=== PATIENT | male | born 1945 | race Caucasian/White ===

== ENCOUNTER 2018-01-14 19:38 | Emergency (ER) | payer OTHER, MEDICAID ==
[~2018-01-14] VITALS: Ht 160 cm; Wt 118.4 kg
[~2018-01-14 19:38] MED LIST: ALDACTONE25 MG PO; AMIODARONE HCL200 MG PO; ANUSOL-HC25 MG/SUPP RC; CLINDAMYCIN HC300 MG PO; COL100 PO; DIOVAN80 MG PO; FLA500 PO; FUROSEMIDE40 MG PO; LAC PO; LEVAQUIN750 MG PO; LOPRESSOR50 MG PO; METFORMIN500 M1 PO; NORCO1 TA2 PO; PRI20 PO; XARELTO10 M1 PO; ZOCOR20 MG PO
[2018-01-14 20:03] VITALS: Ht 160 cm; Wt 118.4 kg
[2018-01-14 21:16] LABS: microscopic required? YES; urine erythrocyte NEGATIVE (NEGATIVE)
[2018-01-14 21:20] LABS: BASOPHIL % 0.4 % (0-2); PLATELET COUNT 304 x10^3mcL (130-400)
[2018-01-14 21:32] LABS: CALCIUM 8.3 mg/dL (8.5-10.1); CARBON DIOXIDE 28.6 mmol/L (21-32); CHLORIDE SERUM 96 mmol/L (98-107); CREATININE SERUM 1.1 mg/dL (0.7-1.3); GLUCOSE SERUM 116 mg/dL (74-106); POTASSIUM SERUM 3.6 mmol/L (3.5-5.1); SODIUM SERUM 132 mmol/L (136-145)
[2018-01-14 21:37] LABS: ALKALINE PHOSPHATASE 111 U/L (46-116); ALT/SGPT 18 U/L (16-63); AST/SGOT 23 U/L (15-37); BILIRUBIN TOTAL 0.91 mg/dL (0.20-1.00); TOTAL PROTEIN, SERUM 6.7 g/dL (6.4-8.2)
[2018-01-14 21:39] LABS: ALBUMIN 2.5 g/dL (3.4-5.0)
[2018-01-14 22:39] VITALS: BP 127/71
== END 2018-01-14 22:39 | disposition home or self-care (01) ==
LOC: ED 19:38
PROVIDERS: Emergency Medicine
DX: S22.32XA Fracture of one rib, left side, initial encounter for closed fracture (principal); N48.89 Other specified disorders of penis; I10 Essential (primary) hypertension; E11.9 Type 2 diabetes mellitus without complications; E78.00 Pure hypercholesterolemia, unspecified; W22.8XXA Striking against or struck by other objects, initial encounter; Y93.89 Activity, other specified; Y92.89 Other specified places as the place of occurrence of the external cause; Y99.8 Other external cause status
CPT/HCPCS: 36415

== ENCOUNTER 2018-07-29 08:17 | Observation (INO) | payer OTHER, MEDICAID ==
[~2018-07-29] VITALS: Ht 170.2 cm; Wt 117.1 kg
[2018-07-29 08:56] LABS: BASOPHIL % 1.1 % (0-2); PLATELET COUNT 301 x10^3mcL (130-400)
[2018-07-29 08:58] LABS: RED CELL DISTRIBUTION WIDTH 16.5 % (11.5-14.5)
[2018-07-29 09:09] LABS: CALCIUM 8.4 mg/dL (8.5-10.1); CARBON DIOXIDE 26.9 mmol/L (21-32); CHLORIDE SERUM 97 mmol/L (98-107); GLUCOSE SERUM 122 mg/dL (74-106); POTASSIUM SERUM 3.7 mmol/L (3.5-5.1); SODIUM SERUM 133 mmol/L (136-145)
[2018-07-29 09:11] LABS: microscopic required? NO
[2018-07-29 09:12] LABS: ALKALINE PHOSPHATASE 146 U/L (46-116); ALT/SGPT 20 U/L (16-63); AST/SGOT 20 U/L (15-37); BILIRUBIN TOTAL 1.12 mg/dL (0.20-1.00); CHOLESTEROL 159 mg/dL (<200); LIPASE 189 IU/L (73-393); TOTAL PROTEIN, SERUM 7.4 g/dL (6.4-8.2); TRIGLYCERIDES 64 mg/dL (<150)
[2018-07-29 09:18] LABS: HDL CHOLESTEROL 80 mg/dL (40-60)
[2018-07-29 09:20] LABS: T3 TOTAL 1.06 ng/mL
[2018-07-29 09:22] LABS: UA SPECIFIC GRAVITY 1.015 (1.005-1.035); urine erythrocyte NEGATIVE (NEGATIVE)
[2018-07-29 09:27] LABS: FREE T4 1.13 ng/dL (0.76-1.46); FREE THYROXINE INDEX 3.3 ug/dL (1.4-4.5); T4(THYROXINE) 8.4 ug/dL (4.7-13.3)
[2018-07-29] MEDS ORDERED: DIOVAN160 MG PO (10:25)
[2018-07-29] MEDS ORDERED: METFORMIN HYDR500 M1 PO (10:26)
[2018-07-29] MEDS ORDERED: HYDRALAZINE HCL50 MG PO (10:26)
[2018-07-29] MEDS ORDERED: XARELTO10 M1 PO (10:27)
[2018-07-29] MEDS ORDERED: GOOD SENSE OMEP20 MG PO (10:27)
[2018-07-29] MEDS ORDERED: METOPROLOL SUCC50 M2 PO (10:28)
[2018-07-29] MEDS ORDERED: FUROSEMIDE40 MG PO (10:29)
[2018-07-29] MEDS ORDERED: SIMVASTATIN20 M1 PO (10:30)
[2018-07-29 15:15] VITALS: BP 169/92
[2018-07-29 16:55] VITALS: BP 161/72
[2018-07-29 20:59] VITALS: BP 155/75
[2018-07-30 06:04] VITALS: BP 158/77
[2018-07-30 06:38] LABS: CALCIUM 8.7 mg/dL (8.5-10.1); CHLORIDE SERUM 100 mmol/L (98-107); CREATININE SERUM 0.9 mg/dL (0.7-1.3); GLUCOSE SERUM 101 mg/dL (74-106); POTASSIUM SERUM 3.7 mmol/L (3.5-5.1); SODIUM SERUM 135 mmol/L (136-145)
[2018-07-30 06:42] LABS: BASOPHIL % 0.8 % (0-2); PLATELET COUNT 271 x10^3mcL (130-400)
[2018-07-30 06:58] LABS: RED CELL DISTRIBUTION WIDTH 16.6 % (11.5-14.5)
[2018-07-30 08:14] VITALS: BP 166/78
[2018-07-30] MEDS ORDERED: NOR5 PO (08:27)
[2018-07-30 11:08] VITALS: BP 166/78; BP 166/79
== END 2018-07-30 14:35 | disposition home health service (06) | DRG 313 ==
LOC: ED 08:17 → DU 11:04
PROVIDERS: Specialist; ADMIT Internal Medicine
DX: R07.9 Chest pain, unspecified (principal); I50.22 Chronic systolic (congestive) heart failure; I42.6 Alcoholic cardiomyopathy; F10.288 Alcohol dependence with other alcohol-induced disorder; R00.8 Other abnormalities of heart beat; I11.0 Hypertensive heart disease with heart failure; E11.9 Type 2 diabetes mellitus without complications; I25.2 Old myocardial infarction; E78.5 Hyperlipidemia, unspecified
CPT/HCPCS: 82962; 83880; 84439; G0378; J1644; J7030; Q0092